=== PATIENT | male | born 1945 | race Caucasian/White ===

== ENCOUNTER → 2020-12-23 00:28 | Outpatient (CLI) | payer MEDICARE, SELFPAY ==
[2020-12-23 18:31] LABS: SARS-CoV-2 RNA PCR Negative
== END ==
PROVIDERS: PCP Family Medicine; Visit Provider Internal Medicine Gastroenterology
DX: Z01.812 Encounter for preprocedural laboratory examination (principal); Z20.822 Contact with and (suspected) exposure to COVID-19
CPT/HCPCS: C9803; U0003; U0005

== ENCOUNTER 2020-12-26 04:33 | Day surgery (SDC) | payer MEDICARE, SELFPAY ==
[2020-12-26 11:48] VITALS: BP 158/93; PULSE 73; RESP 16; TEMP 35.7; O2SAT 100
[2020-12-26] MEDS: LACTATED RINGERS 1,000 ML 150 ML IV CONT (11:54)
--- NOTE | 2020-12-26 12:06 | WPDANESEPPF ---
Anes - Initial Pre Proc Eval Procedure: Operation Date: 12/26/20 13:00 Proposed Procedures p Screening Colonoscopy - Durga Ty MD Date/Time: 12/26/20 12:06 Surgeon: Durga Ty MD Pre Op Diagnosis: hx of colon polyps Patient Data Age: 75 Gender: M Height: 5 ft 10 in Weight: 96.8 kg Last Vital Signs Temp 96.2 F L 12/26/20 11:48 Pulse 73 12/26/20 11:48 Resp 16 12/26/20 11:48 BP 158/93 H 12/26/20 11:48 Pulse Ox 100 12/26/20 11:48 Allergies Allergy/AdvReac Type Severity Reaction Status Date / Time No Known Allergies Allergy Unknown Verified 12/26/20 11:45 Home Medications Medication Instructions Recorded Confirmed Type aspirin 81 mg tablet,delayed 81 mg PO Q4D 08/16/19 12/26/20 History release triamcinolone acetonide 0.5 % 1 applic TOPICAL BID 08/16/19 12/26/20 History topical cream vitamin B12 500 mcg-folic acid 400 1 tablet PO DAILY 08/16/19 12/26/20 History mcg tablet diphenhydramine HCl 25 mg tablet 25 mg PO DAILY PRN tablet 08/28/19 12/26/20 History amlodipine 2.5 mg tablet 2.5 mg PO DAILY 08/18/20 12/26/20 History cholecalciferol (vitamin D3) 125 125 mcg PO DAILY 08/18/20 12/26/20 History mcg (5,000 unit) tablet eltrombopag 50 mg tablet 50 mg PO DAILY 08/18/20 12/26/20 History leuprolide (6 month) 45 mg (6 45 mg SUBCUT [id number] 08/18/20 12/26/20 History month) subcutaneous syringe melatonin 10 mg tablet 10 mg PO DAILY tablet 08/18/20 12/26/20 History lisinopril 40 mg PO DAILY 12/12/20 12/26/20 History Patient hx anesthesia problems: none Family hx anesthesia problems: none PMFSH Past Medical History Medical History B12 deficiency CKD (chronic kidney disease) stage 3, GFR 30-59 ml/min Deep vein thrombosis (DVT) secondary to Chemotherapy - 2008 Dyslipidemia History of chemotherapy 2009 - renal cell History of colon polyps History of DVT (deep vein thrombosis) secondary to Chemotherapy - 2008 History of prostate cancer 03/2017 - s/p radiation History of subdural hematoma Hx of renal cell cancer 2010 Peripheral neuropathy Prostate cancer 03/2017 Thrombocytopenia Vitamin D deficiency Surgical History Surgical History History of cholecystectomy History of left nephrectomy secondary to renal cell cancer Social History Social History Smoking status: Former smoker Tobacco type: cigarettes Second hand tobacco smoke exposure: No Alcohol intake: current Drinks per week: 1 Substance use: never Substance use type: does not use Living arrangements: with family Gender identity (if verbalized by the patient): Male Spiritual care concerns: No Anes - Eval Final PreProcedure Day of Procedure 12/26/20 12:06 Patient weight: obese Heart: regular rate and rhythm Lungs: clear to auscultation Airway: Mallampati scale class III Neurological: alert and oriented Last oral intake: >/= 8 hours ASA classification: IV Emergent: no Anesthetic plan: proceed Anesthesia type and monitoring: general GIVS and standard monitoring Informed Consent: The patient's anesthetic plan and its attendant risks and benefits were discussed with the patient/family/POA. Questions were solicited and answers provided to the satisfaction of the patient/family/POA.
--- NOTE | 2020-12-26 12:41 | PM.HPGS ---
History of Present Illness History of Present Illness Consent: Risks, benefits, and alternatives have been discussed and questions answered. Patient agrees to proceed with procedure. Chief complaint: hx of colon polyps Narrative: Grayson Delgadillo is a 75 year old male with last colonoscopy 10-12 years ago. Review of Systems Constitutional: Constitutional: Denies headache(s) and Denies weakness Eyes: Eyes: Denies blurry vision ENT: Reports Normal hearing present, Denies headache(s) and Denies neck pain Cardiovascular: Cardiovascular: Denies chest pain and Denies dyspnea Respiratory: Respiratory: Denies dyspnea Gastrointestinal: Gastrointestinal: Reports no additional gastrointestinal complaints Genitourinary: Genitourinary: Denies dysuria Musculoskeletal: Musculoskeletal: Denies neck pain Integumentary/Breasts: Skin/Breast: Denies dry skin Neurologic: Reports Normal hearing present, Denies headache(s) and Denies weakness Psychiatric: Psychiatric: Denies anxiety Endocrine: Endocrine: Denies change in body appearance Hematologic/Lymphatic: Hematologic/Lymphatic: Denies easy bleeding Allergic/Immunologic: Allergic/Immunologic: Denies urticaria PMFSH Past Medical History Medical History B12 deficiency CKD (chronic kidney disease) stage 3, GFR 30-59 ml/min Deep vein thrombosis (DVT) secondary to Chemotherapy - 2008 Dyslipidemia History of chemotherapy 2008 - renal cell History of colon polyps History of DVT (deep vein thrombosis) secondary to Chemotherapy - 2008 History of prostate cancer 03/2017 - s/p radiation History of subdural hematoma Hx of renal cell cancer 2010 Peripheral neuropathy Prostate cancer 03/2017 Thrombocytopenia Vitamin D deficiency Surgical History Surgical History History of cholecystectomy History of left nephrectomy secondary to renal cell cancer Social History Social History Smoking status: Former smoker Tobacco type: cigarettes Second hand tobacco smoke exposure: No Alcohol intake: current Drinks per week: 1 Substance use: never Substance use type: does not use Living arrangements: with family Gender identity (if verbalized by the patient): Male Spiritual care concerns: No Meds Home Medications and Allergies Home Medications Medication Instructions Recorded Confirmed Type aspirin 81 mg tablet,delayed 81 mg PO Q4D 08/16/19 12/26/20 History release triamcinolone acetonide 0.5 % 1 applic TOPICAL BID 08/16/19 12/26/20 History topical cream vitamin B12 500 mcg-folic acid 400 1 tablet PO DAILY 08/16/19 12/26/20 History mcg tablet diphenhydramine HCl 25 mg tablet 25 mg PO DAILY PRN tablet 08/28/19 12/26/20 History amlodipine 2.5 mg tablet 2.5 mg PO DAILY 08/18/20 12/26/20 History cholecalciferol (vitamin D3) 125 125 mcg PO DAILY 08/18/20 12/26/20 History mcg (5,000 unit) tablet eltrombopag 50 mg tablet 50 mg PO DAILY 08/18/20 12/26/20 History leuprolide (6 month) 45 mg (6 45 mg SUBCUT [id number] 08/18/20 12/26/20 History month) subcutaneous syringe melatonin 10 mg tablet 10 mg PO DAILY tablet 08/18/20 12/26/20 History lisinopril 40 mg PO DAILY 12/12/20 12/26/20 History Allergies Allergy/AdvReac Type Severity Reaction Status Date / Time No Known Allergies Allergy Unknown Verified 12/26/20 11:45 Vital Signs Vital Signs - 24 hr 12/26/20 11:48 Temperature 96.2 F L Pulse Rate 73 Respiratory Rate 16 Blood Pressure 158/93 H Pulse Oximetry 100 Exam Const: General: comfortable and no acute distress HENMT: General nose exam: Normal nares present Eyes: General: appearance normal, both eyes and all related structures Neck: Neck: no JVD Resp: Auscultation: clear to auscultation bilaterally Cardio: Rate: regular rate Rhythm: regular rhyth
[2020-12-26 13:13] VITALS: BP 121/76; PULSE 66; RESP 21; O2SAT 99
[2020-12-26 13:23] VITALS: BP 131/81; PULSE 62; RESP 20; O2SAT 99
[2020-12-26 13:33] VITALS: BP 151/84; PULSE 53; RESP 16; O2SAT 100
== END 2020-12-26 13:49 | disposition home or self-care (01) ==
PROVIDERS: PCP Family Medicine; Visit Provider Internal Medicine Gastroenterology
PROC: 0DJD8ZZ Inspection of Lower Intestinal Tract, Via Natural or Artificial Opening Endoscopic (ICD-10-PCS; CPT 45378; principal; 2020-12-26 13:00)
DX: Z12.11 Encounter for screening for malignant neoplasm of colon (principal); D12.2 Benign neoplasm of ascending colon; K63.5 Polyp of colon; Z79.82 Long term (current) use of aspirin; N18.30 Chronic kidney disease, stage 3 unspecified; K57.30 Diverticulosis of large intestine without perforation or abscess without bleeding; K64.8 Other hemorrhoids; E53.8 Deficiency of other specified B group vitamins; Z86.718 Personal history of other venous thrombosis and embolism; Z85.46 Personal history of malignant neoplasm of prostate; Z92.3 Personal history of irradiation; Z92.21 Personal history of antineoplastic chemotherapy; Z85.528 Personal history of other malignant neoplasm of kidney; E55.9 Vitamin D deficiency, unspecified; D69.6 Thrombocytopenia, unspecified; G62.9 Polyneuropathy, unspecified; Z87.891 Personal history of nicotine dependence; E66.8 Other obesity; Z68.30 Body mass index [BMI] 30.0-30.9, adult
CPT/HCPCS: 45380; 88305; C9803; J2704; J7120; U0003; U0005